=== PATIENT | male | born 1965 ===

== ENCOUNTER 2017-08-08 08:20 | Day surgery (SDC) | payer BC ==
[2017-08-01 13:36] VITALS: BMI 32.8
[2017-08-08] MEDS ORDERED: ceFAZolin 1 gm in NS 2 GM/200 ML BAG IVPB ONE (11:27)
[2017-08-08] MEDS ORDERED: Lidocaine/Epinephrine 1% 1:100000 10 ML IJ ONE (11:28)
[2017-08-08] MEDS ORDERED: Midazolam 2 MG/2 ML VIAL ONE (11:52)
[2017-08-08] MEDS ORDERED: Propofol 10 mg/ml Inj (20 ML) ONE (11:52)
[2017-08-08] MEDS: Bupivacaine HCl 0.25% PF (30 ml) Inj ONE ×2 (11:59→15:10)
[2017-08-08] MEDS ORDERED: Rocuronium 10 mg/ml (5 ml) ONE (12:01)
[2017-08-08] MEDS ORDERED: Succinylcholine Chloride 20 mg/ml Syr (5 ml) IV ONE (12:01)
[2017-08-08] MEDS ORDERED: Neostigmine Methylsulfate 3mg/3ml Syringe IV ONE (15:00)
[2017-08-08] MEDS ORDERED: Morphine 4 MG/ML VIAL ONE (15:24)
[2017-08-08] MEDS ORDERED: HYDROmorphone 0.5 mg/0.5 ml ISec IVP PRN (15:35)
--- NOTE | 2017-08-08 15:53 | PCM.SURG1 ---
Surgeon's Initial Post Op Note - Surgeon's Notes Surgeon: Dr. Harvey Die Caster: Xiomara PGY2, PGY1, Sigifredo ADKINS Type of Anesthesia: General Endo Pre-Operative Diagnosis: Right inguinal hernia Operative Findings: chronic hernia, extensive adhesions Post-Operative Diagnosis: Right Inguinal hernia Operation Performed: Right inguinal hernia repair with mesh, extensive lysis of adhesions Specimen/Specimens Removed: Hernia Sac Estimated Blood Loss: EBL {In ML}: 10 Drains Used: No Drains Post-Op Condition: Good Date of Surgery/Procedure: 08/08/17 Time of Surgery/Procedure: 15:54
[2017-08-08] MEDS ORDERED: Oxycodone/Acetaminophen 5/325 mg Tab PO ONE (16:15)
[2017-08-08 16:26] VITALS: O2SAT 100
[2017-08-08 17:45] VITALS: BP 147/92; PULSE 88; RESP 18; TEMP 97
--- NOTE | 2017-08-09 04:01 | OP ---
PROCEDURE DATE: 08/08/2017 PREOPERATIVE DIAGNOSES: 1. Right inguinal hernia. 2. Right groin pain. 3. Morbid obesity. POSTOPERATIVE DIAGNOSES: 1. Right large indirect inguinal hernia. 2. 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 3. Extensive postinfectious and idiopathic adhesion in the right lower quadrant as well as pre-peritoneal area. PROCEDURES DONE: 1. Robotic right inguinal hernia repair with mesh. 2. Robotic excision of the lipoma of the spermatic cord. 3. Robotic extensive lysis of adhesion of the peritoneal and pre-peritoneal adhesions. 4. Laparoscopic bilateral TAP block placement. SURGEON: Jack Harvey MD SUPPLY CHAIN DIRECTOR: LUCILLE Chaparro TYPE OF ANESTHESIA: General endotracheal tube anesthesia. ESTIMATED BLOOD LOSS: Around 10 mL. DRAINS: None. PATHOLOGY: Hernial sac and content as well as the lipoma of the cord was sent for pathology. COMPLICATIONS: None. INTRAOPERATIVE FINDINGS: The patient had extremely large right inguinal hernia with a large lipoma of spermatic cord, with extensive peritoneal adhesions intraperitoneally as well as preperitoneally and extensive lysis of adhesion was done, approximately 40 to 60 minute extra time was spent just for the lysis of adhesion and dissection of the preperitoneal space. DESCRIPTION OF PROCEDURE: On intraoperative steps, this is a 52-year-old male who was diagnosed with right inguinal hernia and the patient also had morbid obesity, and the patient was consented for the robotic right inguinal hernia repair with mesh with a TAP block, possible bilateral repair, brought to the OR, placed supine on operating room table. After induction of anesthesia, the abdomen was prepped and draped in the usual sterile fashion. The left upper quadrant incision was made, peritoneal cavity was entered, pneumo was created. Another 3/8 mm port was placed in the upper abdomen, and robot was brought in. Camera arm as well as arm 1 and arm 2 was docked. The patient was placed in a reverse Trendelenburg position before docking the robot, and the patient had extensive peritoneal adhesion in the pelvis. First, a peritoneal incision was made from ASIS up to the midline. Dissection was carried down into the preperitoneal space and the patient found to have extensive adhesion of the preperitoneal space to the anterior abdominal wall space, and adhesions of the large sac to the lateral pelvic wall as well as to the large lipoma of the cord was identified and first extensive lysis of adhesions was done. Midline dissection was done up to the space of Retzius. The lateral dissection was done up to the lateral abdominal wall and anterior dissection was done and after 40 to 60 minutes of additional lysis, the sac was identified and the sac was reduced back into the peritoneal cavity. The vas deferens and spermatic cord vessels were also identified and inferior dissection was done to identify the peritoneal reflection, and a large 10 x 15 mesh was placed and the mesh was implanted. After proper implantation of the mesh, the peritoneum was sutured with 2-0 Vicryl as well as 3-0 PDS V-Loc continuous suture. The specimen was sent off the table for pathology and now laparoscopic bilateral TAP block was given. A 30:30 mL of Marcaine was injected in the right and left side in the transverse abdominis muscles plane and after the proper TAP block, all the ports were taken out under vision. Pneumo was deflated. The specimen retrieval site in the supraumbilical area was closed in 2 layers, the fascia with 0-Vicryl, and skin with 4-0 Monocryl at all the port sites and dry sterile dressing was applied. The patient tolerated the procedure well. Count of instrument and gauze was correct. There was no apparent complication. The patient was extubated in OR, sent to the postanesthesia care unit in stable condition. Jack Harvey MD CARINA
== END 2017-08-08 18:08 | disposition home or self-care (01) ==
LOC: C.SDS 08:20
PROVIDERS: ATTEND Surgery Surgical Critical Care
DX: K40.90 Unilateral inguinal hernia, without obstruction or gangrene, not specified as recurrent (principal); E66.01 Morbid (severe) obesity due to excess calories; D17.6 Benign lipomatous neoplasm of spermatic cord; Z68.32 Body mass index [BMI] 32.0-32.9, adult; K66.0 Peritoneal adhesions (postprocedural) (postinfection)
CPT/HCPCS: 20552; 49650; 55559; 88302; 88304; C1781; J0690; J1170; J1885; J2250; J2270; J2405; J2704; J2710; J3010

== ENCOUNTER 2017-08-16 10:56 | Emergency (ER) | payer BC ==
[2017-08-16 10:56] VITALS: BMI 32.8
[2017-08-16 11:09] VITALS: BP 118/80; PULSE 70; RESP 18; TEMP 98.1; O2SAT 98
--- NOTE | 2017-08-16 11:30 | C.PDOC ---
History Of Present Illness Pt is a 52yo male with history of hypertension, presents to ER requesting a dressing change for his surgical wounds. Patient states on 08/08/17 he had a hernia repair performed in this facility and while taking a shower this morning , the dressing from one of the surgical sites fell off (appears to be site of trochar insertion). He denies any fever, injury, bleeding from the sites, or abdominal pain. Patient has a secondary complaint of seasonal allergies; he reports persistent sneezing. He has been taking Claritin with no relief of his symptoms. Patient has no other medical complaints. PMD: Dr. Kauffman Time Seen by Provider: 08/16/17 11:14 Chief Complaint (Nursing): Medical Clearance History Per: Patient History/Exam Limitations: no limitations Onset/Duration Of Symptoms: Mins Additional History Per: Patient Past Medical History Reviewed: Historical Data, Nursing Documentation, Vital Signs Vital Signs: Last Vital Signs Temp 98.1 F 08/16/17 11:07 Pulse 70 08/16/17 11:07 Resp 18 08/16/17 11:07 BP 118/80 08/16/17 11:07 Pulse Ox 98 08/16/17 11:38 - Medical History PMH: HTN Denies: Chronic Kidney Disease Other PMH: seasonal allergies Surgical History: Hernia Repair Family History: States: No Known Family Hx - Social History Hx Tobacco Use: No Hx Alcohol Use: Yes (occasional) Hx Substance Use: No Review Of Systems Constitutional: Negative for: Fever Cardiovascular: Negative for: Chest Pain Respiratory: Negative for: Shortness of Breath Gastrointestinal: Positive for: Other (requesting bandage change to surgical sites). Negative for: Abdominal Pain Physical Exam - Physical Exam Appears: Non-toxic, No Acute Distress Skin: Normal Color Head: Atraumatic Eye(s): bilateral: Normal Inspection Nose: Normal Oral Mucosa: Moist Lips: Normal Appearing Neck: Supple Chest: Symmetrical Cardiovascular: Rhythm Regular Respiratory: Normal Breath Sounds Gastrointestinal/Abdominal: Bowel Sounds, Soft, No Tenderness, Other (well healing surgical wounds on abdomen. no active bleeding. no warmth, erythema or signs of infection noted. One dressing fell off ) Neurological/Psych: Oriented x3 ED Course And Treatment O2 Sat by Pulse Oximetry: 98 (RA) Pulse Ox Interpretation: Normal Medical Decision Making Medical Decision Making: Impression: Wound check, dressing change Plan: Surgical sites to be cleaned and re-dressed. Patient instructed to follow up with his surgeon in a couple days for a wound check. Stable for discharge home. Disposition - Disposition Disposition: HOME/ ROUTINE Disposition Time: 11:28 Condition: STABLE Additional Instructions: Mr. Brandon, thank you for letting us take care of you today. Return to the ER if your symptoms worsen, or if any problems. Take the medication listed below as prescribed. Follow up with your surgeon in a couple of days for a wound check. Prescriptions: Fluticasone Propionate [Flonase] 2 spr NS DAILY #1 spr Instructions: Seasonal Allergies in Adults Forms: Gen Discharge Inst Estonian Print Language: PASHTO - POA Present On Arrival: None - Clinical Impression Clinical Impression: Dressing change, Seasonal allergies, Visit for wound check - Scribe Statement The provider has reviewed the documentation as recorded by the Scribe (Constance Ley) Provider Attestation: All medical record entries made by the Scribe were at my direction and personally dictated by me. I have reviewed the chart and agree that the record accurately reflects my personal performance of the history, physical exam, medical decision making, and the department course for this patient. I have also personally directed, reviewed, and agree with the discharge instructions and disposition.
== END 2017-08-16 11:44 | disposition home or self-care (01) ==
LOC: C.ER 10:56
DX: Z48.01 Encounter for change or removal of surgical wound dressing (principal); J30.2 Other seasonal allergic rhinitis

== ENCOUNTER 2018-05-29 18:51 | Inpatient (IN) | payer BC ==
[2018-05-29 18:51] VITALS: BMI 32.8
[2018-05-29] MEDS ORDERED: Aspirin 325 mg EC Tablets PO STA (19:30)
[2018-05-29 19:50] LABS: BASO # 0.1 K/uL (0.0-0.2); BASO % 0.7 % (0.0-2.0); EOS # 0.3 K/uL (0.0-0.7); EOS % 2.3 % (0.0-4.0); HEMOGLOBIN 14.9 g/dL (12.0-18.0); LYMPH # 1.2 K/uL (1.0-4.3); LYMPH % 10.4 % (20.0-40.0); MEAN CELL VOLUME 81.9 fL (80.0-94.0); MEAN CORPUSCULAR HEMOGLOBIN 26.5 pg (27.0-31.0); MEAN CORPUSCULAR HGB CONC 32.4 g/dL (33.0-37.0); MONO # 0.6 K/uL (0.0-0.8); MONO % 5.1 % (0.0-10.0); NEUT # 9.7 K/uL (1.8-7.0); NEUT % 81.5 % (50.0-75.0); RBC 5.63 Mil/uL (4.40-5.90); RED CELL DISTRIBUTION WIDTH 15.2 % (11.5-14.5)
[2018-05-29 19:59] LABS: ALB/GLOB RATIO 1.6 (1.0-2.1); ALBUMIN 4.2 g/dL (3.5-5.0); ALT/SGPT 149 U/L (21-72); AST/SGOT 139 U/L (17-59); BLOOD UREA NITROGEN 16 mg/dL (9-20); CALCIUM 8.5 mg/dl (8.6-10.4); GFR NON-AFRICAN AMERICAN > 60
[2018-05-29 20:10] LABS: B-TYPE NATRIURETIC PEPTIDE 77.9 pg/mL (0-900)
[2018-05-29] MEDS ORDERED: Aspirin 325 mg EC Tablets PO ONE (20:21)
--- NOTE | 2018-05-29 20:48 | C.PDOC ---
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 Patient reports that he had URI symptoms, including a dry nonrpoductive cough, over 9 days and finished antibiotics. His URI symptoms have since resolved. Patient denies any nausea, vomiting, diarrhea, fever, SOB, or dizziness. Time Seen by Provider: 05/29/18 19:23 Chief Complaint (Nursing): Cough, Cold, Congestion History Per: Patient, EMS History/Exam Limitations: no limitations Current Symptoms Are (Timing): Gone Quality: Pressure (substernal) Associated Symptoms: denies: Nausea Recent travel outside of the [place]: No Additional History Per: Patient, EMS Past Medical History Reviewed: Historical Data, Nursing Documentation, Vital Signs Vital Signs: Last Vital Signs Temp 97.8 F 05/29/18 19:04 Pulse 83 05/29/18 19:04 Resp 18 05/29/18 19:04 BP 111/75 05/29/18 19:04 Pulse Ox 97 05/29/18 19:04 - Medical History PMH: HTN Denies: Chronic Kidney Disease Surgical History: Hernia Repair Family History: States: Unknown Family Hx - Social History Hx Tobacco Use: No Hx Alcohol Use: Yes (occasional) Hx Substance Use: No - Immunization History Hx Tetanus Toxoid Vaccination: No Hx Influenza Vaccination: No Hx Pneumococcal Vaccination: No Review Of Systems Constitutional: Negative for: Fever Cardiovascular: Positive for: Chest Pain (substernal chest pressur; pain not digitally reproducible ) Respiratory: Negative for: Shortness of Breath Gastrointestinal: Negative for: Nausea, Vomiting, Diarrhea Neurological: Negative for: Dizziness Physical Exam - Physical Exam Appears: Non-toxic, No Acute Distress Skin: Normal Color, Warm, Dry Head: Atraumatic, Normacephalic Eye(s): bilateral: Normal Inspection Ear(s): Bilateral: Normal Nose: Normal Oral Mucosa: Moist Throat: Normal Neck: Normal ROM, Supple Chest: Symmetrical, Other (no digitally reproducible pain to anterior chest wall) Cardiovascular: Rhythm Regular, No Murmur Respiratory: Normal Breath Sounds, No Rales, No Rhonchi, No Wheezing Gastrointestinal/Abdominal: Soft, No Tenderness Extremity: Normal ROM Neurological/Psych: Oriented x3, Normal Speech ED Course And Treatment - Laboratory Results Result Diagrams: 05/29/18 19:39 05/29/18 19:39 Lab Results: Troponin I 0.0380 ng/mL (0.00-0.120) 05/29/18 19:39 NT-Pro-B Natriuret Pep 77.9 pg/mL (0-900) 05/29/18 19:39 Total Bilirubin 0.8 mg/dL (0.2-1.3) 05/29/18 19:39 AST 139 U/L (17-59) H 05/29/18 19:39 ALT 149 U/L (21-72) H D 05/29/18 19:39 Alkaline Phosphatase 69 U/L (38-126) 05/29/18 19:39 Total Protein 6.8 g/dL (6.3-8.3) 05/29/18 19:39 Albumin 4.2 g/dL (3.5-5.0) 05/29/18 19:39 Globulin 2.6 gm/dL (2.2-3.9) 05/29/18 19:39 Albumin/Globulin Ratio 1.6 (1.0-2.1) 05/29/18 19:39 Lab Interpretation: Normal (flu neg.) ECG: Interpreted By Me, Viewed By Me ECG Rhythm: Sinus Rhythm ECG Interpretation: Normal Rate From EC O2 Sat by Pulse Oximetry: 97 (on RA) Pulse Ox Interpretation: Normal - Radiology CXR: Interpreted by Me CXR Interpretation: Yes: No Acute Disease - Other Rad CXR X-Ray: Interpreted by Me Interpretation: Negative Reevaluation Time: 21:56 Reassessment Condition: Improved (remains asymptomatic since ASA/oxygen in ambulance) - Physician Consult Information Outcome Of Conversation: 2199: d/w Dr. Robertson- Medicine Deboning Team Leader- ok to Tele Obs. asks for Cardio Consult. Dr. Hutchins Deboning Team Leader- Consult ordered Medical Decision Making Medical Decision Making: Plan: EKG CXR Labs Serology Influenza Blood Culture Ecotrin 325mg PO 2200: substernal chest pressure, resolved with oxygen/ASA, obese and gaining weight, boarderline DM, high risk factors ASA/lovenox given. 2330: 2nd trop + 0.470 repeat EKG unchanged d/w Dr. Hutchins- Cardio consult pt already received lovenox, ASA, bp well controlled, no CP/pressure now. no further action required at this time. Disposition Doctor Will See Patient In The: Hospital Counseled Patient/Family Regarding: Studies Performed, Diagnosis - Disposition Disposition: HOSPITALIZED Disposition Time: 21:58 Condition: GOOD - Clinical Impression Clinical Impression: Chest pain - Scribe Statement The provider has reviewed the documentation as recorded by the Sarah Barakat All medical record entries made by the Sarah were at my direction and personally dictated by me. I have reviewed the chart and agree that the record accurately reflects my personal performance of the history, physical exam, medical decision making, and the department course for this patient. I have also personally directed, reviewed, and agree with the discharge instructions and disposition.
[2018-05-29] MEDS ORDERED: Enoxaparin 40 mg Syringe SC STA (21:46)
[2018-05-29] MEDS ORDERED: Enoxaparin 100 mg Syringe ONE (21:52)
[2018-05-30 00:12] LABS: URINE BACTERIA RARE (<OCC); URINE BILIRUBIN NEGATIVE (NEGATIVE); URINE BLOOD NEGATIVE (NEGATIVE); URINE CLARITY Hazy (Clear); URINE COLOR Yellow (YELLOW); URINE GLUCOSE (UA) NORMAL (Normal); URINE LEUKOCYTE ESTERASE NEG Leu/uL (Negative); URINE PROTEIN 1+ mg/dL (NEGATIVE); URINE UROBILINOGEN NORMAL mg/dL (0.2-1.0)
[2018-05-30 00:14] LABS: BARBITURATES, UR NEGATIVE (NEGATIVE); BENZODIAZEPINES, UR NEGATIVE (NEGATIVE); OPIATES, UR NEGATIVE (NEGATIVE); PHENCYCLIDINE, UR NEGATIVE (NEGATIVE)
[2018-05-30 01:39] LABS: INR 1.1; PROTHROMBIN TIME 12.3 SECONDS (9.7-12.2)
[2018-05-30 07:38] LABS: BASO # 0.1 K/uL (0.0-0.2); BASO % 0.7 % (0.0-2.0); EOS # 0.3 K/uL (0.0-0.7); EOS % 2.9 % (0.0-4.0); HEMOGLOBIN 14.9 g/dL (12.0-18.0); LYMPH # 1.9 K/uL (1.0-4.3); MEAN CELL VOLUME 81.6 fL (80.0-94.0); MEAN CORPUSCULAR HEMOGLOBIN 27.4 pg (27.0-31.0); MEAN CORPUSCULAR HGB CONC 33.5 g/dL (33.0-37.0); MEAN PLATELET VOLUME 9.5 fL (7.2-11.7); MONO # 0.8 K/uL (0.0-0.8); MONO % 8.9 % (0.0-10.0); NEUT % 66.5 % (50.0-75.0); RBC 5.43 Mil/uL (4.40-5.90); RED CELL DISTRIBUTION WIDTH 15.1 % (11.5-14.5)
[2018-05-30 08:04] LABS: ALB/GLOB RATIO 1.5 (1.0-2.1); ALBUMIN 3.7 g/dL (3.5-5.0); ALT/SGPT 115 U/L (21-72); AST/SGOT 79 U/L (17-59); BLOOD UREA NITROGEN 17 mg/dL (9-20); CALCIUM 8.6 mg/dl (8.6-10.4); GFR NON-AFRICAN AMERICAN > 60; HDL CHOLESTEROL 22 mg/dL (30-70)
[2018-05-30 08:10] LABS: LDL CHOLESTEROL 96 mg/dL (0-129)
[2018-05-30 08:18] LABS: TROPONIN I 0.507 ng/mL (0.00-0.120)
[2018-05-30] MEDS: Enoxaparin 100 mg Syringe SC SCH ×2 (09:38→21:03)
[2018-05-30] MEDS ORDERED: Nitroglycerin 2% Ointment Foilpak UD TOP PRN (09:49)
--- NOTE | 2018-05-30 09:50 | CP.PCM.PN ---
Subjective - Date & Time of Evaluation Date of Evaluation: 05/30/18 Time of Evaluation: 09:50 - Subjective Subjective: H&P dictated # [id number] Objective - Vital Signs/Intake and Output Vital Signs (last 24 hours): Temp Pulse Resp BP Pulse Ox 98.3 F 64 20 128/88 96 05/30/18 07:00 05/30/18 09:38 05/30/18 09:38 05/30/18 09:38 05/30/18 09:38 - Medications Medications: Current Medications Aspirin (Aspirin) 325 mg PO DAILY [facility] Last Admin: 05/30/18 09:37 Dose: 325 mg Enoxaparin Sodium (Lovenox) 100 mg SC Q12 [facility] Last Admin: 05/30/18 09:38 Dose: 100 mg Guaifenesin (Mucinex La) 600 mg PO BID [facility] Potassium Chloride (Potassium Chloride 10 Meq/100 Ml) 10 meq in 100 mls @ 100 mls/hr IVPB Q2H [facility] Stop: 05/30/18 12:59 Last Admin: 05/30/18 09:02 Dose: 100 mls/hr Influenza Virus Vaccine (Flucelvax Quad [id number] Syr) 60 mcg IM .ONCE ONE Stop: 05/31/18 10:01 Metoprolol Tartrate (Lopressor) 25 mg PO BID [facility] Last Admin: 05/30/18 09:37 Dose: 25 mg Pneumococcal Polyvalent Vaccine (Pneumovax 23 Vaccine) 0.5 ml IM .ONCE ONE Stop: 05/31/18 10:01 Potassium Chloride (K-Dur 20 Meq Er Tab) 40 meq PO ONCE ONE Stop: 05/30/18 10:01 Last Admin: 05/30/18 09:37 Dose: 40 meq Rosuvastatin Calcium (Crestor) 20 mg PO HS [facility] Last Admin: 05/30/18 00:55 Dose: 20 mg - Labs Labs: 05/30/18 07:27 05/30/18 07:27 PT 12.3 SECONDS (9.7-12.2) H 05/30/18 01:30 INR 1.1 05/30/18 01:30 APTT 43 SECONDS (21-34) H 05/30/18 01:30
[2018-05-30] MEDS ORDERED: Potassium Chloride 20 mEq ER Tab PO ONE (10:00)
[2018-05-30] MEDS: guaiFENesin 600 mg ER Tab PO SCH ×2 (10:48→17:46)
--- NOTE | 2018-05-30 11:38 | RAD ---
Date of service: 05/29/2018 HISTORY: SOB COMPARISON: Comparison chest 08/01/2017 FINDINGS: LUNGS: Minor bibasilar atelectasis. PLEURA: No significant pleural effusion identified, no pneumothorax apparent. CARDIOVASCULAR: Minimal aortic atherosclerotic calcification present. Normal cardiac size. No pulmonary vascular congestion. OSSEOUS STRUCTURES: No significant abnormalities. VISUALIZED UPPER ABDOMEN: Normal. OTHER FINDINGS: None. IMPRESSION: Minor bibasilar atelectasis.
[2018-05-30] MEDS ORDERED: Iodixanol 320 MG/ML 100 ML BOTTLE IV ONE (11:48)
--- NOTE | 2018-05-30 13:11 | CT ---
Date of service: 05/30/2018 PROCEDURE: CT Chest with contrast (Pulmonary Angiogram) HISTORY: Chest pain COMPARISON: None available. TECHNIQUE: Axial computed tomography images were obtained of the chest in the pulmonary arterial phase of enhancement. Coronal and sagittal reformatted images were created and reviewed. Intravenous contrast dose: Radiation dose: Total exam DLP = 622.24 mGy-cm. This CT exam was performed using one or more of the following dose reduction techniques: Automated exposure control, adjustment of the mA and/or kV according to patient size, and/or use of iterative reconstruction technique. FINDINGS: PULMONARY ARTERIES: Visualized pulmonary trunk, right and left main, lobar, segmental and subsegmental branches of the pulmonary arteries are well opacified with no definitive filling defects seen to suggest acute central pulmonary embolus. The pulmonary trunk measures approximately 2.64 cm. No is made of what appears to represent unopacified blood within the posterior aspect of the SVC likely due to income in unopacified blood from the right upper extremity as well as the azygos vein. This is not felt to represent IVC thrombus AORTA: There is a very mild aneurysmal dilatation of the ascending thoracic aorta which measures approximately 4.1 cm. Descending thoracic aorta measures approximately 2.6 cm.. No aortic atherosclerotic calcification or mural plaque present. LUNGS: There is mild passive/dependent type atelectasis both posterior lung delgado most pronounced in the lower lobes. There are also areas of chronic linear atelectasis/scarring seen both lung bases and lingular region. PLEURAL SPACES: Unremarkable. No effusion or pneumothorax. HEART: Heart size is borderline/mildly enlarged. No significant pericardial effusion. LYMPH NODES: Few small nonspecific mediastinal lymph nodes. Trachea midline and patent with no large central endoluminal lesions. Small hiatal hernia. BONES, CHEST WALL: Minor multilevel degenerative spondylosis of the thoracic spine Minimal changes of bilateral gynecomastia OTHER FINDINGS: Fatty hepatic infiltration noted. Cholelithiasis. IMPRESSION: No evidence of acute central pulmonary embolus however note is made of what appears to represent unopacified blood within the posterior aspect of the SVC likely due to income in unopacified blood from the right upper extremity as well as the azygos vein. This is not felt to represent IVC thrombus Mild passive/dependent type atelectasis as above. There also areas of chronic linear atelectasis and or scarring both lung bases and left lingular regions. Fatty hepatic infiltration. Cholelithiasis.
--- NOTE | 2018-05-30 14:10 | CARD ---
APPROVED REPORT Date of service: 05/30/2018 EXAM: Two-dimensional and M-mode echocardiogram with Doppler and color Doppler. Other Information Quality : GoodRhythm : INDICATION Chest Pain RISK FACTORS Hypertension 2D DIMENSIONS IVSd1.6 (0.7-1.1cm)Aortic Root (2D)3.5 (2.0-3.7cm) LVDd3.2 (3.9-5.9cm)LVOT Diameter2.2 (1.8-2.4cm) PWd1.6 (0.7-1.1cm)LVDs2.4 (2.5-4.0cm) FS (%) 25.6 %LVEF (%)51.8 (>50%) LVEF (Lopez's)63.93 % M-Mode DIMENSIONS Left Atrium (MM)3.55 (2.5-4.0cm)Aortic Root3.71 (2.2-3.7cm) Aortic Cusp Exc.2.19 (1.5-2.0cm) Mitral Valve MV E Fgdrzoyu80.9cm/sMV A Wyeuffvc74.7cm/sE/A ratio1.3 TDI E/Lateral E'0.0E/Medial E'0.0 Tricuspid Valve TR Peak Lcoizbzk031qe/sTR Peak Gr.[id number] <Conclusion> normal size la,lv & ra rv. moderate degree of concnetric lvh with lvef of 55-60%. normal wall motion. normal lv diastolic function. normal aortic,mitral,tv & pv. trace mr & tr with normal pulmonary systolic pressures of 22 mm of hg. normal size aortic root & ivc. no pericardial effusion.
--- NOTE | 2018-05-30 17:38 | US ---
Date of service: 05/30/2018 HISTORY: elevated LFTs COMPARISON: None. TECHNIQUE: Sonographic evaluation of the abdomen. FINDINGS: LIVER: Liver is enlarged measuring over 23 cm in CC dimension.. Liver demonstrates smooth contour however increased echotexture suggesting fatty infiltration. Other infiltrative hepatocellular disease process not excluded. No obvious hepatic masses or collections GALLBLADDER: Cholelithiasis. No sonographic Castro sign COMMON BILE DUCT: Measures 5.7 mm. No stones. No dilatation. PANCREAS: Unremarkable as visualized. No mass. No ductal dilatation. RIGHT KIDNEY: Measures 13.2 x 5.9 x 5.6cm. Normal echogenicity. No calculus, mass, or hydronephrosis. There are at least 2 cysts present the largest in the upper pole measuring 5.7 cm in greatest dimension. Nonobstructing calculus lower pole right kidney measuring 8 mm. LEFT KIDNEY: Measures 13.8 x 5.3 x 6.8cm. Normal echogenicity. No calculus, mass, . There is a upper/midpole cyst measuring approximately 6.2 cm in greatest dimension. Hydronephrosis. SPLEEN: Normal in size (10.7 cm) and contour. No mass. AORTA: Incompletely visualized IVC: Unremarkable. OTHER FINDINGS: None. IMPRESSION: Fatty hepatic infiltration suspected however other infiltrative hepatic cellular disease process not excluded. Cholelithiasis. No sonographic Castro sign Bilateral renal cysts.. Nonobstructing calculus lower pole right kidney.
[2018-05-30 19:43] LABS: BLOOD UREA NITROGEN 17 mg/dL (9-20); CALCIUM 8.2 mg/dl (8.6-10.4); GFR NON-AFRICAN AMERICAN > 60
--- NOTE | 2018-05-30 23:19 | CON ---
DATE: 05/30/2018 CARDIOLOGY CONSULTATION REASON FOR CONSULTATION: Chest pain. HISTORY OF PRESENT ILLNESS: The patient is 53-year-old, moderately obese, male who has a history of hypertension, presented because of retrosternal chest pain. The patient stated that he yesterday got his home from work, he felt chest heaviness and sweated for few minutes. The patient had no recurrence of chest discomfort after that and denies any prior cardiac history. MEDICATIONS: Aspirin 325 mg once a day, Crestor 20 mg once a day, Lopressor 25 mg twice a day, Lovenox 100 mg subcutaneously twice a day, and intravenous potassium chloride replacement. SOCIAL HISTORY: The patient is nonsmoker. He works in [employer]. REVIEW OF SYSTEMS: No back pain. No dizziness or syncope. No fever or chills. No nausea or vomiting. PHYSICAL EXAMINATION: GENERAL: The patient is a middle-aged male, who does not appear to be in acute distress. VITAL SIGNS: Blood pressure 128/88, heart rate 64, temperature 98.3, respirations 20. HEENT: Head normocephalic. NECK: No JVD. CHEST: Clear. HEART: S1, S2, regular. ABDOMEN: Soft. EXTREMITIES: No edema. No calf tenderness. LABORATORY DATA: Today's SMA-7: Sodium 140, potassium 2.9, chloride 101, CO2 of 31, glucose 88, BUN 17, creatinine 0.8. Troponin 0.38, 0.417, and 0.507. INR is 1.1. T4 of 3. Today's hemoglobin and hematocrit 14.9 and 44.4, white count 9, platelet count 252,000. Influenza type A and B serology is negative. Chest x-ray was unremarkable except for prominent bronchovascular markings. EKG revealed normal sinus rhythm at the rate of 65. ASSESSMENT: 1. Chest pain, consider non-ST elevation myocardial infarction. 2. Profound hypokalemia. 3. Obesity. RECOMMENDATIONS: Case was discussed with primary physician, Dr. Tariq. The patient will be maintained on aspirin 325 mg once a day, Crestor 20 mg once a day, Lopressor 25 mg twice a day, therapeutic subcutaneous Lovenox 100 mg twice a day. I will start Plavix 75 mg daily. I will review the echocardiograph study supposed to be performed today. Follow up chest CT angiogram that will be ordered by Dr. Tariq in the meantime and the patient will be scheduled for cardiac catheterization as early as Friday. The procedure and its risks were fully explained to the patient who understood them and agreed for the procedure. Prashant Alejandro MD
--- NOTE | 2018-05-31 01:22 | HP ---
CHIEF COMPLAINT: Retrosternal chest pain which started yesterday while he was at home. HISTORY OF PRESENT ILLNESS: Mr. Brandon is a 53-year-old male with past medical history of hypertension following up with PMD, on blood pressure medications for few years, came into the ED, brought my EMS for symptoms of retrosternal chest pressure which started yesterday while he was at home. The history was obtained from the patient through a French speaking refinisher. As per the patient, he was shoveling the day before yesterday. He did not have any symptoms of chest pain or anything while he was shoveling. Yesterday, in the afternoon while he was at home resting and watching TV, he felt retrosternal chest pressure associated with diaphoresis. Pain was severe and nonradiating. Denies any headache, dizziness or shortness of breath. Pain lasted few minutes, at which point he called ambulance, pain subsided before coming to the emergency room. He denied any other associated symptoms of nausea or vomiting but complaining of dry cough. He was given antibiotics by his PMD and his URI symptoms resolved. PAST MEDICAL HISTORY: Hypertension. PAST SURGICAL HISTORY: He had hernia repair and laser surgery in both the eyes. FAMILY HISTORY: Denies any family history of coronary artery disease. PERSONAL HISTORY: He is single, living along, having two daughters. He works in the [employer] for [employer]. SOCIAL HISTORY: He smokes one cigarette per day, drinks alcohol socially, denies any other drug abuse. HOME MEDICATIONS: He could not recall what he was getting at home, but he claims that he takes blood pressure medication. REVIEW OF SYSTEMS: As described in history of present illness, all other systems reviewed and were found to be negative. PHYSICAL EXAMINATION: GENERAL: Middle aged obese male lying in bed, in no acute distress. VITAL SIGNS: Blood pressure 128/88, pulse 64, respiration 20, temperature 98.3 Fahrenheit, O2 sats 96% on room air. HEENT: Pupils are equal, round, and reacting to light and accommodation. Extraocular muscles are intact. No icterus. No pallor. No oral thrush. No pharyngeal congestion. NECK: Supple, no JVD. LUNGS: Bilateral vesicular breath sounds. No wheezing. No rhonchi. CARDIOVASCULAR: S1 and S2 present, regular. ABDOMEN: Soft, nontender, bowel sounds present. No guarding, no rigidity, no rebound tenderness noted. CENTRAL NERVOUS SYSTEM: Alert, awake, oriented x3. No focal deficits noted. EXTREMITIES: No edema. Palpable peripheral pulses. LABORATORY DATA: Done from the emergency room; WBC 12, hemoglobin 14.9, hematocrit 46.1, platelets 204. PT is 12.3, INR 1.1, PTT 43. Sodium 138, potassium 2.9, chloride 102, bicarb 25, BUN 16, creatinine 0.7, glucose 169, calcium 8.5, total bilirubin 0.8, AST 139, ALT 149, alkaline phosphatase 69, troponin 0.038, repeat one this morning is 0.417 and 0.507. Cholesterol is 127, triglycerides 102, LDL 96, HDL 22, TSH 1.79. Urine specific gravity 1.009, pH 7, protein 1+, drug screen negative and C enzyme negative. EKG normal sinus rhythm without any acute ST-T changes. Chest x-ray negative for any infiltrates. CT of the chest, there is no evidence of acute pulmonary embolus and opacified blood within the posterior aspect of the SVC likely due to incoming and opacified blood from the right upper extremity as well as the azygos vein. This is not far to represent IVC thrombus. Mild passive dependent type atelectasis. There are also areas of chronic linear atelectasis in the left lingula region, fatty hepatic infiltration, cholelithiasis. ASSESSMENT: Middle aged male with history of hypertension, recently treated for upper respiratory infection, admitted for retrosternal pressure like pain associated with diaphoresis. In the emergency room, no electrocardiogram changes, negative troponin, but on the floor the patient had second and third positive and the patient has been admitted for further evaluation. 1. Non-ST elevation myocardial infection with positive troponins. 2. History of hypertension. 3. Hypokalemia. 4. Abnormal liver function test, probably secondary to fatty infiltration, cholelithiasis. PLAN: The patient is being admitted to telemetry. We will give aspirin 325 mg daily, metoprolol 25 mg p.o. b.i.d., Lovenox therapeutic doses. Discussed with Cardiology, Dr. Alejandro for possible cardiac catheterization on Friday. We will give nitroglycerine paste as needed for chest pain. I will supplement potassium, will check magnesium level. I will repeat BMP at 4 p.m. We will check ultrasound of the abdomen and pelvis. We will follow up with echo results. I will repeat serial EKGs. Discuss with patient at bedside. We will add further recommendation as his clinical course progresses. Mary Tariq MD
[2018-05-31 02:20] VITALS: RESP 20
[2018-05-31] MEDS: guaiFENesin 600 mg ER Tab PO SCH ×2 (09:26→18:20)
[2018-05-31] MEDS ORDERED: Influenza Vaccine 60 mcg/0.5 mL SYR (4YR UP) IM ONE (10:00)
[2018-05-31] MEDS ORDERED: Potassium Chloride 20 mEq/15 ml LIQ UD PO ONE ×2 (10:00→14:00)
[2018-05-31] MEDS ORDERED: Pneumococcal 23-Valent Vaccine IM ONE (10:00)
[2018-05-31] MEDS: Potassium Chloride 20 mEq ER Tab PO SCH ×2 (10:08→13:57)
[2018-05-31] MEDS: Enoxaparin 100 mg Syringe SC SCH ×2 (10:09→22:01)
--- NOTE | 2018-05-31 12:39 | CP.PCM.PN ---
Subjective - Date & Time of Evaluation Date of Evaluation: 05/31/18 Time of Evaluation: 12:38 - Subjective Subjective: Progress note dictated #[id number] Objective - Vital Signs/Intake and Output Vital Signs (last 24 hours): Temp Pulse Resp BP Pulse Ox 97.6 F 71 20 148/98 H 96 05/31/18 07:00 05/31/18 07:00 05/31/18 07:00 05/31/18 09:26 05/31/18 07:00 Intake and Output: 05/31/18 05/31/18 06:59 18:59 Intake Total 750 Balance 750 - Medications Medications: Current Medications Aspirin (Aspirin) 325 mg PO DAILY [facility] Last Admin: 05/31/18 09:25 Dose: 325 mg Enoxaparin Sodium (Lovenox) 100 mg SC Q12 [facility] Last Admin: 05/31/18 10:09 Dose: 100 mg Guaifenesin (Mucinex La) 600 mg PO BID [facility] Last Admin: 05/31/18 09:26 Dose: 600 mg Metoprolol Tartrate (Lopressor) 25 mg PO BID [facility] Last Admin: 05/31/18 09:26 Dose: 25 mg Nitroglycerin (Nitro-Bid 2% Oint) 1 ea TOP Q6 PRN PRN Reason: pain Potassium Chloride (K-Dur 20 Meq Er Tab) 40 meq PO Q4H [facility] Stop: 05/31/18 14:01 Last Admin: 05/31/18 10:08 Dose: 40 meq Rosuvastatin Calcium (Crestor) 20 mg PO HS [facility] Last Admin: 05/30/18 21:03 Dose: 20 mg - Labs Labs: 05/30/18 07:27 05/30/18 19:25 PT 12.3 SECONDS (9.7-12.2) H 05/30/18 01:30 INR 1.1 05/30/18 01:30 APTT 43 SECONDS (21-34) H 05/30/18 01:30
[2018-05-31 17:41] LABS: BLOOD UREA NITROGEN 17 mg/dL (9-20); CALCIUM 8.5 mg/dl (8.6-10.4); GFR NON-AFRICAN AMERICAN > 60
--- NOTE | 2018-05-31 20:10 | PN ---
DATE: 05/31/2018 SUBJECTIVE: The patient denies any chest pain or shortness of breath. PHYSICAL EXAMINATION: VITAL SIGNS: Blood pressure 145/98, heart rate 71, temperature 97.6, respirations 20. HEENT: Normocephalic. CHEST: Clear. HEART: S1 and S2 regular. ABDOMEN: Soft. EXTREMITIES: No edema. IMAGING STUDIES: Chest CT angio revealed no evidence of acute central pulmonary embolus or no advancement of central pulmonary embolus, however, an opacified blood within the posterior aspect of the superior vena cava likely due to incoming and an opacified blood from the right upper extremity as well as azygos vein. This is not to represent IVC thrombus. Mild passive, dependent-type atelectasis. Abdomen ultrasound showed fatty liver. Cholelithiasis. renal cyst. Nonobstructive calculus; lower pole of the right kidney. ASSESSMENT: 1. Chest pain. Consider non-ST elevation myocardial infarction. 2. Hypokalemia. 3. Obesity. RECOMMENDATIONS: Continue aspirin at 325 mg once a day, Crestor 20 mg once a day, Lopressor 25 mg once a day, subcutaneous Lovenox at 100 mg once a day, also Plavix 75 mg once a day. The patient will be kept n.p.o. after midnight for cardiac catheterization tomorrow. Lovenox a.m. dose will be withheld. Prashant Alejandro MD
--- NOTE | 2018-05-31 23:11 | PN ---
DATE: 05/31/2018 SUBJECTIVE: The patient is seen and examined at bedside. The patient denies any chest pain, shortness of breath, or wheezing. All other systems reviewed and were found to be negative. PHYSICAL EXAMINATION: GENERAL: Middle-aged male, lying in bed, in no acute distress. VITAL SIGNS: Blood pressure 150/95, pulse 62, respirations 20, temperature 98.1 degrees Fahrenheit, O2 sat is 98% on room air. HEENT: Pupils equal, round, reacting to light and accommodation. Extraocular muscles intact. No icterus. No pallor. No oral thrush. No pharyngeal congestion. NECK: Supple. No JVD. LUNGS: Bilateral vesicular breath sounds. No wheezing. No rhonchi. CARDIOVASCULAR SYSTEM: S1 and S2 present, regular. ABDOMEN: Soft and nontender. Bowel sounds present. No guarding. No rigidity. No rebound tenderness noted. CENTRAL NERVOUS SYSTEM: Alert, awake, oriented x3. No focal deficits noted. EXTREMITIES: No edema. Palpable peripheral pulses. MEDICATIONS: Aspirin 325 mg daily, Plavix 75 mg daily, Lovenox 100 mg subcu every 12 hours, Mucinex b.i.d., Lopressor 50 mg p.o. b.i.d., Nitro-Bid as needed, and Crestor 20 mg p.o. at bedtime. LABORATORY DATA: Labs from today: Sodium 138, potassium 3.6, chloride 105, bicarb 27, BUN 17, creatinine 0.8, glucose 108, calcium 8.5. ASSESSMENT AND PLAN: Middle-aged male with history of hypertension. Admitted for non-ST elevation myocardial infarction, status post hypokalemia, abnormal liver function tests, fatty infiltration and cholelithiasis. The patient is on beta blockers, anticoagulation with Lovenox, aspirin and Plavix, lipid-lowering agents, for possible cardiac catheterization by Cardiology. Discussed with the patient at bedside. We will follow up with Cardiology. Mary Tariq MD
[2018-06-01 08:13] LABS: BASO # 0.1 K/uL (0.0-0.2); BASO % 0.9 % (0.0-2.0); EOS # 0.3 K/uL (0.0-0.7); EOS % 4.3 % (0.0-4.0); HEMOGLOBIN 14.9 g/dL (12.0-18.0); LYMPH # 1.5 K/uL (1.0-4.3); LYMPH % 19.6 % (20.0-40.0); MEAN CELL VOLUME 82.7 fL (80.0-94.0); MEAN CORPUSCULAR HEMOGLOBIN 26.7 pg (27.0-31.0); MEAN CORPUSCULAR HGB CONC 32.3 g/dL (33.0-37.0); MEAN PLATELET VOLUME 9.1 fL (7.2-11.7); MONO # 0.7 K/uL (0.0-0.8); MONO % 8.5 % (0.0-10.0); NEUT # 5.2 K/uL (1.8-7.0); NEUT % 66.7 % (50.0-75.0); RBC 5.58 Mil/uL (4.40-5.90); RED CELL DISTRIBUTION WIDTH 14.9 % (11.5-14.5); WHITE BLOOD COUNT 7.7 K/uL (4.8-10.8)
[2018-06-01 08:27] LABS: ALB/GLOB RATIO 1.5 (1.0-2.1); ALBUMIN 3.8 g/dL (3.5-5.0); ALT/SGPT 68 U/L (21-72); AST/SGOT 32 U/L (17-59); BLOOD UREA NITROGEN 14 mg/dL (9-20); CALCIUM 8.2 mg/dl (8.6-10.4); GFR NON-AFRICAN AMERICAN > 60
[2018-06-01] MEDS: guaiFENesin 600 mg ER Tab PO SCH ×2 (09:30→17:32)
[2018-06-01] MEDS ORDERED: Iohexol 350mg/ml 100 ML ONE (09:47)
[2018-06-01] MEDS ORDERED: Lidocaine 2% MPF (5 ml) Inj ONE (10:23)
[2018-06-01] MEDS ORDERED: Midazolam 2 MG/2 ML VIAL ONE (10:56)
[2018-06-01] MEDS ORDERED: Nitroglycerin 2% Ointment Foilpak UD TOP ONE (11:15)
--- NOTE | 2018-06-01 11:28 | CP.PCM.PN ---
Subjective - Date & Time of Evaluation Date of Evaluation: 06/01/18 Time of Evaluation: 11:28 - Subjective Subjective: Progress note dictated #[id number] Objective - Vital Signs/Intake and Output Vital Signs (last 24 hours): Temp Pulse Resp BP Pulse Ox 97.7 F 64 20 152/94 H 96 06/01/18 08:00 06/01/18 08:00 06/01/18 08:00 06/01/18 08:00 06/01/18 08:00 - Medications Medications: Current Medications Aspirin (Aspirin) 325 mg PO DAILY [facility] Last Admin: 05/31/18 09:25 Dose: 325 mg Clopidogrel Bisulfate (Plavix) 75 mg PO DAILY [facility] Last Admin: 05/31/18 15:04 Dose: 75 mg Enoxaparin Sodium (Lovenox) 100 mg SC Q12 [facility] Last Admin: 05/31/18 22:01 Dose: Not Given Guaifenesin (Mucinex La) 600 mg PO BID [facility] Last Admin: 06/01/18 09:30 Dose: Not Given Metoprolol Tartrate (Lopressor) 50 mg PO BID [facility] Last Admin: 06/01/18 09:29 Dose: Not Given Nitroglycerin (Nitro-Bid 2% Oint) 1 ea TOP Q6 PRN PRN Reason: pain Rosuvastatin Calcium (Crestor) 20 mg PO HS [facility] Last Admin: 05/31/18 22:01 Dose: 20 mg - Labs Labs: 06/01/18 07:55 06/01/18 07:55 PT 12.3 SECONDS (9.7-12.2) H 05/30/18 01:30 INR 1.1 05/30/18 01:30 APTT 43 SECONDS (21-34) H 05/30/18 01:30
--- NOTE | 2018-06-01 12:50 | CARD ---
APPROVED REPORT Date of service: 05/29/2018 EKG Measurement Heart [id number] <Conclusion> Normal sinus rhythm Minimal voltage criteria for LVH, may be normal variant Borderline ECG
--- NOTE | 2018-06-01 14:23 | CARD ---
APPROVED REPORT Date of service: 05/30/2018 EKG Measurement Heart [id number] <Conclusion> Normal sinus rhythm with sinus arrhythmia Normal ECG
--- NOTE | 2018-06-01 19:13 | CARDCATH ---
PROCEDURE DATE: 06/01/2018 CLINICAL INDICATIONS: The patient is a 53-year-old male who has history of hypertension, presented because of chest pain. Borderline troponin was positive. Cardiac catheterization was recommended. The procedure and its risks were fully explained to the patient who understood and agreed for the procedure. DESCRIPTION OF PROCEDURE: After local infiltration with 1% lidocaine, a 6-Nepalese sheath was placed in the right femoral artery. Left and right coronary angiographies were performed with 6-Nepalese JL4 and JR4 diagnostic catheter. Left ventriculogram was performed with 6-Nepalese pigtail catheter in MACK projection. Aortography could not be performed because the power injector was in use in the operating room. The patient tolerated the procedure well without any complications. ANGIOGRAPHIC FINDINGS: Selective injection of left coronary artery revealed the left main to be a normal vessel. Left main trifurcated into a medium-sized LAD and medium-sized circumflex and a small ramus branch. The entire left coronary artery circulation was angiographically unremarkable. Selective injection of the right coronary artery revealed a large vessel that gave a large PDA and a very large extensive posterolateral ventricular branch. The entire right coronary artery circulation was angiographically unremarkable. Left ventriculogram performed in the MACK projection revealed normal wall motion. Ejection fraction was estimated at 55%. No mitral insufficiency. CONCLUSION: Unremarkable coronary artery circulation and normal left ventricular systolic function. RECOMMENDATIONS: I will review one more time the images of this chest CT angio for the evaluation of the aortic root and arch. Otherwise, no coronary intervention is required at this time. Prashant Alejandro MD cc: Mary Tariq MD.
--- NOTE | 2018-06-01 19:22 | PN ---
DATE: 06/01/2018 SUBJECTIVE: The patient underwent left heart catheterization, which revealed unremarkable coronary circulation and normal ejection fraction. Aortogram could not be performed because the power injector was in use in the operating room. By reviewing the chest CT angio that was performed two days ago; the aortic description was pretty mild aneurysmal dilatation with ascending thoracic aorta, which measured approximately 4.1 cm and descending thoracic aorta measures 2.6. No aortic atherosclerotic calcification or mural plaque present. By reviewing the echo study images; the aortic valve was tricuspid and aortic root measured 3.71 cm, which is borderline. There was moderate concentric LVH with normal systolic function and wall motion. ASSESSMENT: 1. Chest pain with borderline troponin elevation. 2. Mildly aneurysmal ascending aorta. 3. Hypertension and moderate concentric left ventricular hypertrophy. RECOMMENDATIONS: The patient can be maintained on aspirin at 325 mg once a day, Crestor at 20 mg once a day, Lopressor 50 mg once a day with a followup chest CT angio in one year. Prashant Alejandro MD
[2018-06-01] MEDS: Potassium & Sodium Phosphate PO SCH ×2 (19:45→21:28)
--- NOTE | 2018-06-02 00:04 | PN ---
DATE: 06/01/2018 SUBJECTIVE: The patient is seen and examined at bedside. The patient underwent cardiac catheterization this morning. Denies any other complaints. Anxious to be discharged. PHYSICAL EXAMINATION: GENERAL: A middle-aged male, lying in bed, in no acute distress. VITAL SIGNS: Blood pressure 133/85, pulse 65, respirations 20, temperature 97.6 degrees Fahrenheit, O2 sat is 96% on room air. HEENT: Pupils equal, round, reacting to light and accommodation. Extraocular muscles intact. No icterus. No pallor. No oral thrush. No pharyngeal congestion. NECK: Supple. No JVD. LUNGS: Bilateral vesicular breath sounds. No wheezing. No rhonchi. CARDIOVASCULAR SYSTEM: S1 and S2 present, regular. ABDOMEN: Soft and nontender. Bowel sounds present. No guarding. No rigidity. No rebound tenderness noted. CENTRAL NERVOUS SYSTEM: Alert, awake, oriented x3. No focal deficits noted. EXTREMITIES: No edema. Palpable peripheral pulses. MEDICATIONS: Include aspirin 325 mg daily, Plavix 75 mg daily, Lovenox 100 mg subcu every 12 hours, Mucinex as needed, Lopressor 50 mg p.o. b.i.d., Crestor 20 mg p.o. at bedtime. LABORATORY DATA: Labs from this morning: WBC 7.7, hemoglobin 14.9, hematocrit 46.2, platelets 200. Sodium 139, potassium 4.1, chloride 104, bicarb 28, BUN 14, creatinine 0.6, glucose 108, calcium 8.2, phosphorus 2, magnesium 1.9. AST 32, ALT 68, alkaline phosphatase 60, total protein 6.3, albumin 3.8. ASSESSMENT AND PLAN: Middle-aged male with past medical history of hypertension. Admitted for recent myocardial infarction, status post hypokalemia, status post abnormal liver function tests, hypophosphatemia, status post cardiac catheterization. Discussed with Dr. Alejandro. As per Cardiology, his catheter does not show any significant occlusion. We will get lower extremity Doppler. We will supplement potassium. If lower extremity Doppler is negative and okay with Dr. Alejandro, we will plan discharging the patient home. Mary Tariq MD
[2018-06-02 07:25] LABS: BASO # 0.1 K/uL (0.0-0.2); BASO % 0.5 % (0.0-2.0); EOS # 0.3 K/uL (0.0-0.7); EOS % 2.4 % (0.0-4.0); HEMOGLOBIN 14.9 g/dL (12.0-18.0); LYMPH # 1.3 K/uL (1.0-4.3); LYMPH % 11.6 % (20.0-40.0); MEAN CELL VOLUME 81.7 fL (80.0-94.0); MEAN PLATELET VOLUME 9.3 fL (7.2-11.7); MONO # 0.8 K/uL (0.0-0.8); NEUT # 8.9 K/uL (1.8-7.0); NEUT % 78.5 % (50.0-75.0); RBC 5.53 Mil/uL (4.40-5.90); RED CELL DISTRIBUTION WIDTH 15.2 % (11.5-14.5); WHITE BLOOD COUNT 11.3 K/uL (4.8-10.8)
[2018-06-02 08:27] VITALS: BP 149/92; PULSE 63; TEMP 98.4; O2SAT 94
[2018-06-02] MEDS: Potassium & Sodium Phosphate PO SCH ×2 (08:30→11:57)
[2018-06-02] MEDS: guaiFENesin 600 mg ER Tab PO SCH (10:27)
--- NOTE | 2018-06-02 11:09 | CP.PCM.PN ---
Subjective - Date & Time of Evaluation Date of Evaluation: 06/02/18 Time of Evaluation: 11:09 - Subjective Subjective: Discharge summary dictated #[id number] Objective - Vital Signs/Intake and Output Vital Signs (last 24 hours): Temp Pulse Resp BP Pulse Ox 98.4 F 63 20 149/92 H 94 L 06/02/18 08:26 06/02/18 08:26 06/02/18 08:26 06/02/18 08:26 06/02/18 08:26 - Medications Medications: Current Medications Aspirin (Aspirin) 325 mg PO DAILY [facility] Last Admin: 06/02/18 10:27 Dose: 325 mg Clopidogrel Bisulfate (Plavix) 75 mg PO DAILY [facility] Last Admin: 06/02/18 10:28 Dose: 75 mg Enoxaparin Sodium (Lovenox) 100 mg SC Q12 [facility] Last Admin: 05/31/18 22:01 Dose: Not Given Guaifenesin (Mucinex La) 600 mg PO BID [facility] Last Admin: 06/02/18 10:27 Dose: 600 mg Metoprolol Tartrate (Lopressor) 50 mg PO BID [facility] Last Admin: 06/02/18 10:28 Dose: 50 mg Nitroglycerin (Nitro-Bid 2% Oint) 1 ea TOP Q6 PRN PRN Reason: pain Potassium Phos/Sodium Phos (Neutra-Phos) 1 pkt PO 0800,1200,1700,2200 [facility] Last Admin: 06/02/18 08:30 Dose: 1 pkt Rosuvastatin Calcium (Crestor) 20 mg PO HS [facility] Last Admin: 06/01/18 21:27 Dose: 20 mg - Labs Labs: 06/02/18 07:04 06/01/18 07:55 PT 12.3 SECONDS (9.7-12.2) H 05/30/18 01:30 INR 1.1 05/30/18 01:30 APTT 43 SECONDS (21-34) H 05/30/18 01:30
--- NOTE | 2018-06-03 02:51 | DS ---
DISCHARGE DIAGNOSES: 1. Hypertension. 2. Chest pain with mild troponin elevation, status post cardiac catheterization with a near normal coronaries and mildly aneurysmal ascending aorta. 3. Hypertension and moderate concentric left ventricular hypertrophy, status post hypokalemia and hypophosphatemia. HISTORY OF PRESENT ILLNESS: Mr. Brandon is a 53-year-old male with past medical history of hypertension, following up with Dr. Kauffman, came into the emergency room with complaints of chest pressure, nonradiating, associated with diaphoresis, and in the ED, the patient was found to be having normal EKG and normal troponin, and the patient was admitted for further evaluation to rule out coronary artery disease. Today, the patient is feeling better. Denies any headache or dizziness. Denies any chest pain, shortness of breath, or wheezing. Denies any nausea, vomiting, abdominal pain, diarrhea, or constipation. Denies any other urinary complaints. Denies any leg pains or leg cramps. Denies any other neurologic symptoms. All other systems reviewed and were found to be negative. PHYSICAL EXAMINATION: GENERAL: A middle-aged male, lying in bed, in no acute distress. VITAL SIGNS: Blood pressure 149/92, pulse 63, respirations 20, temperature 98.4 degrees Fahrenheit, O2 sats 94% on room air. HEENT: Pupils equal, round, reacting to light and accommodation. Extraocular muscles intact. No icterus. No pallor. No oral thrush. No pharyngeal congestion. NECK: Supple. No JVD. LUNGS: Bilateral vesicular breath sounds. No wheezing. No rhonchi. CARDIOVASCULAR SYSTEM: S1, S2 present and regular. ABDOMEN: Soft, nontender. Bowel sounds present. No guarding. No rigidity. No rebound tenderness noted. CENTRAL NERVOUS SYSTEM: Alert, awake, oriented x3. No focal deficits noted. EXTREMITIES: No edema. Palpable peripheral pulses. LABORATORY DATA: Labs from today, WBC 11.3, hemoglobin 14.9, hematocrit 45.2, platelets 202. Sodium 139, potassium 4.1, chloride 104, bicarb 28, BUN 14, creatinine 0.6, glucose 108. Hemoglobin A1c 6.2. Calcium 8.2, phosphorus 2, magnesium 1.9. LFT is within normal limits. Cholesterol 127, LDL 96, HDL 22, TSH 1.79, triglycerides 102. HOSPITAL COURSE: The patient was admitted to telemetry, underwent repeat EKGs, and followup troponins were slightly positive. The patient was started on metoprolol, anticoagulants, and lipid-lowering agents. The patient was evaluated by Cardiology, underwent cardiac catheterization on Friday which did not reveal any significant occlusion of any coronaries. The patient underwent CT angiogram which was negative for any PE. Lower extremity Dopplers were negative for any DVT. Discussed with Cardiology. Recommended aspirin, Crestor, and metoprolol to be continued, and advised repeat CT of the chest in one year for followup. The patient is otherwise hemodynamically stable. On the admission day, the patient's potassium was low, received multiple doses of potassium supplementation. Today, his phosphorus was low. He was given p.o. Neutra-Phos. The patient is cleared by Cardiology, and advised the patient to follow up with his PMD. CONDITION UPON DISCHARGE: The patient is alert, awake, and oriented x3, and hemodynamically stable at the time of discharge. DISCHARGE INSTRUCTIONS: Follow up with PMD. Follow up with Cardiology as outpatient. DISCHARGE DIET: Heart healthy diet. ACTIVITY: As tolerated. DISCHARGE MEDICATIONS: Aspirin 325 mg daily, metoprolol 50 mg b.i.d., Neutra-Phos one pack p.o. four times a day for two days, Crestor 20 mg p.o. at bedtime. Advised to discontinue his losartan, hydrochlorothiazide, and amlodipine. Advised to return to emergency room if any worsening of his symptoms. Mary Tariq MD
--- NOTE | 2018-06-03 11:11 | VASCLAB ---
Date of service: 06/02/2018 PROCEDURE: Lower Extremity Venous Duplex Exam. HISTORY: Leg swelling PRIORS: None. TECHNIQUE: Bilateral common femoral, femoral, popliteal and posterior tibial, peroneal and great saphenous veins were evaluated. Flow was assessed with color Doppler, compressibility, assessment of phasic flow and augmentation response. Report prepared by Tim Minaya, ERAN, RVT FINDINGS: RIGHT: 1. Common Femoral Vein: 1.1. Unable to examine. 2. Femoral Vein: 2.1. Compressibility - Fully compressible: Thrombus - None : Flow - Phasic: Augmentation -Normal: Reflux - None. 3. Popliteal Vein: 3.1. Compressibility - Fully compressible: Thrombus - None : Flow - Phasic: Augmentation -Normal: Reflux - None. 4. Posterior Tibial Vein: 4.1. Compressibility - Fully compressible: Thrombus - None: Flow - Phasic: Augmentation -Normal: Reflux - None. 5. Peroneal Vein: 5.1. Compressibility - Fully compressible: Thrombus - None: Flow - Phasic: Augmentation -Normal: Reflux - None. 6. Great Saphenous Vein: 6.1. Compressibility - Fully compressible: Thrombus - None: Flow - Phasic: Augmentation - Normal: Reflux - None. LEFT: 1. Common Femoral Vein: 1.1. Compressibility - Fully compressible: Thrombus - None: Flow - Phasic: Augmentation -Normal: Reflux - None. 2. Femoral Vein: 2.1. Compressibility - Fully compressible: Thrombus - None: Flow - Phasic: Augmentation -Normal: Reflux - None. 3. Popliteal Vein: 3.1. Compressibility - Fully compressible: Thrombus - None : Flow - Phasic: Augmentation -Normal: Reflux - None. 4. Posterior Tibial Vein: 4.1. Compressibility - Fully compressible: Thrombus - None: Flow - Phasic: Augmentation -Normal: Reflux - None. 5. Peroneal Vein: 5.1. Compressibility - Fully compressible: Thrombus - None: Flow - Phasic: Augmentation -Normal: Reflux - None. 6. Great Saphenous Vein: 6.1. Compressibility - Fully compressible: Thrombus - None: Flow - Phasic: Augmentation - Normal: Reflux - None. OTHER FINDINGS: Right: Unable to examine the right common femoral vein due to dressing in the groin. Left: None significant. IMPRESSION: Right: No evidence of deep or superficial vein thrombosis of the right lower extremity, as visualized. Normal valve function noted of the right side. Left: No evidence of deep or superficial vein thrombosis of the left lower extremity. Normal valve function noted of the left side.
== END 2018-06-02 13:14 | disposition home or self-care (01) | DRG 287 ==
LOC: C.ER 18:51 → C.9E 22:09 → C.6T 22:30 → OBSVTOIN 05-30 08:11
PROVIDERS: ADMIT Internal Medicine; ATTEND Internal Medicine
PROC: 4A023N7 Measurement of Cardiac Sampling and Pressure, Left Heart, Percutaneous Approach (ICD-10-PCS; principal; 2018-06-01)
PROC: B2151ZZ Fluoroscopy of Left Heart using Low Osmolar Contrast (ICD-10-PCS; 2018-06-01)
PROC: B2111ZZ Fluoroscopy of Multiple Coronary Arteries using Low Osmolar Contrast (ICD-10-PCS; 2018-06-01)
DX: R07.89 Other chest pain (principal); R79.89 Other specified abnormal findings of blood chemistry; I11.9 Hypertensive heart disease without heart failure; I71.2 Thoracic aortic aneurysm, without rupture; E87.6 Hypokalemia; I51.7 Cardiomegaly; E83.39 Other disorders of phosphorus metabolism; K80.20 Calculus of gallbladder without cholecystitis without obstruction; E66.9 Obesity, unspecified; F17.210 Nicotine dependence, cigarettes, uncomplicated; I25.2 Old myocardial infarction; Z68.31 Body mass index [BMI] 31.0-31.9, adult